=== PATIENT | male | born 1965 ===

== ENCOUNTER 2020-11-01 08:43 | Day surgery (SDC) | payer OTHER ==
[2020-11-01] MEDS ORDERED: NEURONTIN300 MG PO (13:05)
[2020-11-01] MEDS ORDERED: ULTRAM50 MG PO (13:05)
[2020-11-01] MEDS ORDERED: TYLENOL ARTHRI650 MG PO (13:05)
[2020-11-01] MEDS ORDERED: MIRALAX17 GM PO (13:05)
== END 2020-11-01 17:20 | disposition home or self-care (01) ==
LOC: CIR.AMB 08:43
PROVIDERS: ATTEND Surgery
DX: K42.0 Umbilical hernia with obstruction, without gangrene (principal); Z20.822 Contact with and (suspected) exposure to COVID-19